=== PATIENT | female | born 1995 | race Caucasian/White ===

== ENCOUNTER 2016-06-13 17:09 | Emergency (ER) | payer OTHER ==
[~2016-06-13] VITALS: Ht 162.6 cm; Wt 108.0 kg
[~2016-06-13 17:09] MED LIST: COUMADIN5 MG PO; LOVENOX100 MG/1 M SC; OXAYDO5 MG PO
[2016-06-13 18:26] LABS: EOSINOPHIL (%) 1.5 % (0-5); EOSINOPHIL COUNT 0.1 K/uL (0-0.3); HEMATOCRIT 41.2 % (36.0-46.0); IMMATURE GRANULOCYTE (%) 0.2 % (0.0-0.7); IMMATURE GRANULOCYTE COUNT 0.1 K/uL; LYMPHOCYTE COUNT 0.6 K/uL (1.0-2.8); MCH 31.9 PG (29.0-34.0); MCHC 35.9 G/DL (30.0-36.0); MCV 88.8 FL (83-99); MEAN PLAT.VOLUME 11.1 uM^3 (9.5-12.4); MONOCYTE (%) 8.5 % (3-12); MONOCYTE COUNT 0.5 K/uL (0-0.8); NEUTROPHIL (%) 79.4 % (45-76); NEUTROPHIL COUNT 4.8 K/uL (1.8-6.4); PLATELET COUNT 161 K/uL (156-360); RBC DIS.WIDTH-CV 12.5 % (11.8-14.6); RBC DIS.WIDTH-SD 39.8 % (39-53); RED BLOOD COUNT 4.64 M/uL (3.80-5.20)
[2016-06-13 18:35] LABS: CHLORIDE 104 mEq/L (99-109); SODIUM 137 mEq/L (136-147)
[2016-06-13 18:36] LABS: GLUCOSE 91 mg/dL (70-99); INTER. NORMALIZED RATIO 1.1; PROTHROMBIN TIME 10.8 (9.2-11.2); PTT 25.7 (25-32)
[2016-06-13 18:38] LABS: ANION GAP 11 MEQ/L (2-14)
[2016-06-13 18:40] LABS: GFR ESTIMATE (CALCULATED) > 59 mL/min/
[2016-06-13 18:41] LABS: UREA NITROGEN (BUN) 8 mg/dL (9-23)
[2016-06-13 18:48] LABS: QUANTITATIVE HCG < 4.0 MIU/ML
[2016-06-13 22:29] VITALS: BP 134/63
== END 2016-06-13 22:30 | disposition home or self-care (01) ==
LOC: EME 17:09
PROVIDERS: Physician Assistant
DX: I82.511 Chronic embolism and thrombosis of right femoral vein (principal); I82.531 Chronic embolism and thrombosis of right popliteal vein; R42 Dizziness and giddiness; R51 Headache; Z79.01 Long term (current) use of anticoagulants; Z87.891 Personal history of nicotine dependence
CPT/HCPCS: 70450; 80048; 84702; 85025; 85610; 85730; 93971; 99281; 99284; J2270; J2405; J7030

== ENCOUNTER 2017-07-24 21:25 | Emergency (ER) | payer OTHER ==
[~2017-07-24] VITALS: Ht 162.6 cm; Wt 104.7 kg
[2017-07-24 21:30] VITALS: BP 141/82
[2017-07-24 22:02] LABS: HEMATOCRIT 42.7 % (36.0-46.0); HEMOGLOBIN 15.3 G/DL (11.9-15.5); MCH 32.3 PG (29.0-34.0); MCHC 35.8 G/DL (30.0-36.0); MCV 90.3 FL (83-99); PLATELET COUNT 161 K/uL (156-360); RBC DIS.WIDTH-SD 39.6 % (39-53); RED BLOOD COUNT 4.73 M/uL (3.80-5.20); WHITE BLOOD COUNT 8.6 K/uL (4.1-10.2)
[2017-07-24 22:15] LABS: CHLORIDE 104 mEq/L (99-109); SODIUM 141 mEq/L (136-147)
[2017-07-24 22:17] LABS: GLUCOSE 101 mg/dL (70-99)
[2017-07-24 22:21] LABS: CREATININE 0.9 mg/dL (0.6-1.3); GFR ESTIMATE (CALCULATED) > 59 mL/min/
[2017-07-24 22:22] LABS: TROP-I INTERPRETATION NEGATIVE; TROPONIN-I < 0.01 ng/mL (0.0-0.30)
[2017-07-24 22:22] LABS: UREA NITROGEN (BUN) 10 mg/dL (9-23)
[2017-07-25] MEDS ORDERED: ZITHROMAX Z-PA250 MG PO (16:46)
== END 2017-07-24 23:55 | disposition left against medical advice (07) ==
LOC: EME 21:25
DX: R07.9 Chest pain, unspecified (principal); R06.89 Other abnormalities of breathing; Z53.21 Procedure and treatment not carried out due to patient leaving prior to being seen by health care provider
CPT/HCPCS: 71046; 80048; 84484; 85027; 93005

== ENCOUNTER 2017-07-25 11:11 | Emergency (ER) | payer OTHER ==
[~2017-07-25] VITALS: Ht 162.6 cm; Wt 103.1 kg
[2017-07-25 13:55] LABS: TROP-I INTERPRETATION NEGATIVE; TROPONIN-I < 0.01 ng/mL (0.0-0.30)
[2017-07-25] MEDS ORDERED: ZITHROMAX Z-PA250 MG PO (16:46)
[2017-07-25 17:04] VITALS: BP 112/68
== END 2017-07-25 17:05 | disposition home or self-care (01) ==
LOC: EME 11:11
PROVIDERS: Physician Assistant
DX: J18.9 Pneumonia, unspecified organism (principal); H66.92 Otitis media, unspecified, left ear; I82.511 Chronic embolism and thrombosis of right femoral vein; I82.531 Chronic embolism and thrombosis of right popliteal vein; Q26.8 Other congenital malformations of great veins; Z88.0 Allergy status to penicillin; Z87.891 Personal history of nicotine dependence
CPT/HCPCS: 71275; 84484; 84702; 93005; 93971; 99281; 99284; J7030

== ENCOUNTER 2017-09-24 11:00 | Emergency (ER) | payer OTHER ==
[~2017-09-24] VITALS: Ht 162.6 cm; Wt 100.0 kg
[~2017-09-24 11:00] MED LIST changes: +ZITHROMAX Z-PA250 MG PO
[2017-09-24] MEDS ORDERED: CLEOCIN300 MG PO (12:04)
[2017-09-24 12:35] VITALS: BP 126/96
== END 2017-09-24 12:35 | disposition home or self-care (01) ==
LOC: EME 11:00
DX: R11.2 Nausea with vomiting, unspecified (principal); T36.1X5A Adverse effect of cephalosporins and other beta-lactam antibiotics, initial encounter; L02.415 Cutaneous abscess of right lower limb; Z86.718 Personal history of other venous thrombosis and embolism; Z88.0 Allergy status to penicillin
CPT/HCPCS: 99281; 99283